=== PATIENT | female | born 1970 | race Caucasian/White ===

== ENCOUNTER 2016-04-10 05:24 | Day surgery (SDC) | payer BC ==
[~2016-04-10] VITALS: Ht 170.2 cm; Wt 72.5 kg
[~2016-04-10 05:24] MED LIST: BCP; CYMBALTA20 MG PO; PROTONIX40 MG PO; TOPAMAX50 MG PO
[2016-04-10 05:51] VITALS: BP 112/77
[2016-04-10 09:15] VITALS: BP 131/83
[2016-04-10 10:00] VITALS: BP 113/75
== END 2016-04-10 10:10 | disposition home or self-care (01) ==
LOC: SDC 05:24
DX: N92.1 Excessive and frequent menstruation with irregular cycle (principal); N84.0 Polyp of corpus uteri; N94.6 Dysmenorrhea, unspecified
CPT/HCPCS: 88305; J0131; J0690; J1100; J1885; J2250; J2405; J2765; J3010